=== PATIENT | female | born 1995 | race Two or more races ===

== ENCOUNTER → 2022-05-31 | Outpatient (REF) | payer SELFPAY ==
[2022-05-31 19:05] LABS: GC DNA AMPLIFICATION NEGATIVE (NEGATIVE)
== END ==
LOC: M LAB REF 15:58
PROVIDERS: ATTEND Physician Assistant
DX: R35.0 Frequency of micturition (principal)

== ENCOUNTER → 2022-08-14 | Outpatient (CLI) | payer MEDICAID ==
[2022-08-14 15:34] LABS: HEMATOCRIT 37.7 % (36.0-47.0); HEMOGLOBIN 12.8 g/dl (12.0-15.5); MEAN CORPUSCULAR HEMOGLOBIN 30.3 pg (27.0-33.0); MEAN CORPUSCULAR VOLUME 89.3 fl (80.0-96.0); PLATELET COUNT, AUTOMATED 371 10^3/uL (150-450); RED BLOOD COUNT 4.22 10^6/uL (4.00-5.40); WHITE BLOOD COUNT 9.7 10^3/uL (4.0-10.0)
[2022-08-14 16:32] LABS: HEPATITIS C VIRUS ABY INDEX < 0.0 INDEX (<0.8); HIV 1&2 SCREEN CENTAUR NEGATIVE (NEGATIVE)
== END ==
LOC: M PLALAB 12:27
PROVIDERS: ATTEND Obstetrics & Gynecology
DX: Z34.91 Encounter for supervision of normal pregnancy, unspecified, first trimester (principal)

== ENCOUNTER → 2022-09-13 | Outpatient (REF) | payer OTHER, MEDICARE, MEDICAID ==
[2022-09-13 16:18] LABS: GC DNA AMPLIFICATION NEGATIVE (NEGATIVE)
== END ==
LOC: M SFHCWAGY 13:08
PROVIDERS: ATTEND Obstetrics & Gynecology
DX: Z34.91 Encounter for supervision of normal pregnancy, unspecified, first trimester (principal)

== ENCOUNTER → 2022-10-20 | Outpatient (CLI) | payer OTHER | LOC: M WHC 14:29 | PROVIDERS: ATTEND Advanced Practice Midwife | DX: O32.1XX0 Maternal care for breech presentation, not applicable or unspecified (principal); Z36.89 Encounter for other specified antenatal screening; Z3A.21 21 weeks gestation of pregnancy ==

== ENCOUNTER → 2022-11-10 | Outpatient (CLI) | payer OTHER ==
[2022-11-10 13:44] LABS: HEMATOCRIT 35.7 % (36.0-47.0); HEMOGLOBIN 12.1 g/dl (12.0-15.5); MEAN CORPUSCULAR HEMOGLOBIN 30.9 pg (27.0-33.0); MEAN CORPUSCULAR HGB CONC 33.9 g/dl (32.0-36.5); MEAN CORPUSCULAR VOLUME 91.1 fl (80.0-96.0); PLATELET COUNT, AUTOMATED 314 10^3/uL (150-450); RED BLOOD COUNT 3.92 10^6/uL (4.00-5.40); WHITE BLOOD COUNT 8.4 10^3/uL (4.0-10.0)
[2022-11-10 15:28] LABS: GC DNA AMPLIFICATION NEGATIVE (NEGATIVE)
== END ==
LOC: M PLALAB 08:40
PROVIDERS: ATTEND Advanced Practice Midwife
DX: Z34.82 Encounter for supervision of other normal pregnancy, second trimester (principal)

== ENCOUNTER 2022-12-02 12:47 | Outpatient (CLI) | payer OTHER, MEDICARE, MEDICAID ==
[~2022-12-02] VITALS: Ht 162.6 cm; Wt 78.7 kg
[2022-12-02 13:00] VITALS: BP 129/69
[2022-12-02] MEDS ORDERED: HOME MED LIST COMPLETE! XX SCH (13:05)
[2022-12-02] MEDS ORDERED: PRENTAB9 PO (13:05)
== END 2022-12-02 13:29 | disposition home or self-care (01) ==
LOC: M LDO 12:47
PROVIDERS: ATTEND Specialist
DX: O26.892 Other specified pregnancy related conditions, second trimester (principal); O26.852 Spotting complicating pregnancy, second trimester; Z3A.27 27 weeks gestation of pregnancy

== ENCOUNTER → 2023-02-08 | Outpatient (REF) | payer MEDICARE, MEDICAID ==
[~2023-02-08] MED LIST: PRENTAB9 PO
== END ==
LOC: M PLALAB 09:03
PROVIDERS: ATTEND Advanced Practice Midwife
DX: Z34.83 Encounter for supervision of other normal pregnancy, third trimester (principal)

== ENCOUNTER 2023-02-26 20:28 | Inpatient (IN) | payer MEDICARE, MEDICAID ==
[~2023-02-26] VITALS: Ht 162.6 cm; Wt 89.1 kg
[2023-02-26] VITALS (7 sets, daily range): BP systolic 117–143; BP diastolic 59–72
[2023-02-26] MEDS ORDERED: LACTATED RINGER'S 1000 ML IV STA (21:01)
[2023-02-26] MEDS ORDERED: PENICILLIN G POTASSIUM 5 MU IV 5 MU in D5W MINI-BAG PLUS 100 ML IV STA (21:01)
[2023-02-26] MEDS ORDERED: OXYTOCIN INJ 10UNITS/ML 1ML VIAL IM PRN (21:05)
[2023-02-26] MEDS ORDERED: CARBOPROST TROMETHAMINE 250 MCG/ML AMP IM PRN (21:05)
[2023-02-26] MEDS ORDERED: LIDOCAINE 1% MDV 20ML VIAL INFIL PRN (21:05)
[2023-02-26] MEDS ORDERED: LR 1,000 ML IV SCH (21:05)
[2023-02-26] MEDS ORDERED: TRANEXAMIC ACID INJection 1,000 MG in NS 100 ML IV PRN (21:05)
[2023-02-26] MEDS ORDERED: METHYLERGONOVINE MALEATE 0.2MG/ML 1ML VIAL IM PRN (21:05)
[2023-02-26] MEDS ORDERED: OXYTOCIN DRIP 30 UNITS in IV 1 EA IV PRN (21:05)
[2023-02-26 21:52] LABS: HEMATOCRIT 37.3 % (36.0-47.0); HEMOGLOBIN 12.6 g/dl (12.0-15.5); MEAN CORPUSCULAR HEMOGLOBIN 30.2 pg (27.0-33.0); MEAN CORPUSCULAR HGB CONC 33.8 g/dl (32.0-36.5); MEAN CORPUSCULAR VOLUME 89.4 fl (80.0-96.0); PLATELET COUNT, AUTOMATED 286 10^3/uL (150-450); RED BLOOD COUNT 4.17 10^6/uL (4.00-5.40); WHITE BLOOD COUNT 15.2 10^3/uL (4.0-10.0)
[2023-02-26] MEDS ORDERED: MOM 30ML SUSPENSION UDC PO PRN (23:00)
[2023-02-26] MEDS ORDERED: ACETAMINOPHEN 500 MG TAB PO PRN (23:00)
[2023-02-26] MEDS ORDERED: DIBUCAINE 1% OINTMENT 30GM TOP PRN (23:00)
[2023-02-26] MEDS ORDERED: RHOGAM 300MCG (1500IU) INJ IM SCH (23:00)
[2023-02-26] MEDS ORDERED: DOCUSATE SODIUM 100MG CAPSULE PO PRN (23:00)
[2023-02-26] MEDS ORDERED: IBUPROFEN 800 MG TAB PO PRN (23:00)
[2023-02-26] MEDS ORDERED: ACETAMINOPHEN TAB 650MG DOSE (2X325MG) PO PRN (23:00)
[2023-02-26] MEDS ORDERED: ANUSOL HC CREAM 30GM TOP PRN (23:00)
[2023-02-27] MEDS ORDERED: PEN G POT 3,000,000 UNIT/50 ML 3,000,000 UNIT in IV 1 EA IV SCH (01:16)
[2023-02-27 01:29] VITALS: BP 111/57
[2023-02-27 05:49] VITALS: BP 118/55
[2023-02-27] MEDS: PRENATAL VITAMINS CHEWABLE TABLET PO SCH (09:39)
[2023-02-27] MEDS: IBUPROFEN 600MG TAB PO PRN (09:40)
[2023-02-27 17:43] VITALS: BP 116/85
[2023-02-28 06:00] VITALS: BP 118/62
[2023-02-28] MEDS: IBUPROFEN 600MG TAB PO PRN (07:54)
[2023-02-28] MEDS: PRENATAL VITAMINS CHEWABLE TABLET PO SCH (07:54)
[2023-02-28] MEDS ORDERED: MEASLES,MUMPS,RUBELLA VACCINE INJ (MMR-II) SC.IMMUN ONE (09:00)
== END 2023-02-28 14:20 | disposition home or self-care (01) | DRG 807 ==
LOC: M LDO 20:28 → M LDI 20:49 → M OBS 23:46
PROVIDERS: ADMIT Advanced Practice Midwife; ATTEND Advanced Practice Midwife
PROC: 10E0XZZ Delivery of Products of Conception, External Approach (ICD-10-PCS; principal; 2023-02-26)
PROC: 0HQ9XZZ Repair Perineum Skin, External Approach (ICD-10-PCS; 2023-02-26)
DX: O62.3 Precipitate labor (principal); Z37.0 Single live birth; Z3A.39 39 weeks gestation of pregnancy; O99.824 Streptococcus B carrier state complicating childbirth; O70.0 First degree perineal laceration during delivery

== ENCOUNTER → 2023-09-14 | Outpatient (REF) | payer MEDICARE, MEDICAID | LOC: M PLALAB 08:40 | PROVIDERS: ATTEND Advanced Practice Midwife | DX: Z01.419 Encounter for gynecological examination (general) (routine) without abnormal findings (principal) ==

== ENCOUNTER → 2023-09-14 | Outpatient (CLI) | payer MEDICAID, MEDICARE, OTHER | LOC: M PLALAB 09:56 | PROVIDERS: ATTEND Advanced Practice Midwife | DX: Z33.2 Encounter for elective termination of pregnancy (principal) ==

== ENCOUNTER → 2023-09-21 | Outpatient (CLI) | payer OTHER | LOC: M PLALAB 10:42 | PROVIDERS: ATTEND Advanced Practice Midwife | DX: Z33.2 Encounter for elective termination of pregnancy (principal) ==

== ENCOUNTER → 2024-02-05 | Outpatient (CLI) | payer OTHER | LOC: M PLAIMG 10:30 | PROVIDERS: ATTEND Physician Assistant Surgical | DX: M54.6 Pain in thoracic spine (principal); M41.9 Scoliosis, unspecified ==

== ENCOUNTER → 2024-03-20 | Outpatient (CLI) | payer OTHER | LOC: M RAD 12:24 | PROVIDERS: ATTEND Physician Assistant Surgical | DX: S39.012D Strain of muscle, fascia and tendon of lower back, subsequent encounter (principal); S16.1XXD Strain of muscle, fascia and tendon at neck level, subsequent encounter ==

== ENCOUNTER → 2025-08-12 | Outpatient (CLI) | payer OTHER ==
[2025-08-12 14:24] LABS: PLATELET COUNT, AUTOMATED 352 10^3/uL (150-450)
[2025-08-12 15:14] LABS: HIV 1&2 SCREEN NEGATIVE (NEGATIVE)
[2025-08-12 15:16] LABS: Trichomonas vaginalis (AMP) NOT DETECTED (NEGATIVE)
[2025-08-12 15:23] LABS: HEPATITIS C VIRUS ABY INDEX 0.02 INDEX (<0.8)
[2025-08-12 15:40] LABS: GC DNA AMPLIFICATION NEGATIVE (NEGATIVE)
== END ==
LOC: M PLALAB 11:01
PROVIDERS: ATTEND Advanced Practice Midwife
DX: O99.212 Obesity complicating pregnancy, second trimester (principal); Z3A.13 13 weeks gestation of pregnancy; E66.9 Obesity, unspecified

== ENCOUNTER → 2025-09-21 | Outpatient (CLI) | payer OTHER | LOC: M WHC 10:13 | PROVIDERS: ATTEND Advanced Practice Midwife | DX: O99.212 Obesity complicating pregnancy, second trimester (principal); Z3A.19 19 weeks gestation of pregnancy ==

== ENCOUNTER 2025-10-12 16:16 | Emergency (ER) | payer OTHER ==
[~2025-10-12] VITALS: Ht 162.6 cm; Wt 93.3 kg
[2025-10-12] MEDS: ACETAMINOPHEN 325 MG TAB PO ONE (17:08)
[2025-10-12] MEDS ORDERED: OSEL75CA PO (18:14)
[2025-10-12 18:23] VITALS: BP 101/53; TEMP 99.8; O2SAT 96
== END 2025-10-12 18:25 | disposition home or self-care (01) ==
LOC: M ED 16:16
DX: O98.512 Other viral diseases complicating pregnancy, second trimester (principal); Z3A.22 22 weeks gestation of pregnancy

== ENCOUNTER → 2025-10-15 | Outpatient (CLI) | payer OTHER ==
[~2025-10-15] MED LIST changes: +OSEL75CA PO
== END ==
LOC: M WHC 13:23
PROVIDERS: ATTEND Advanced Practice Midwife
DX: Z34.82 Encounter for supervision of other normal pregnancy, second trimester (principal); Z3A.22 22 weeks gestation of pregnancy

== ENCOUNTER 2025-11-09 11:10 | Emergency (ER) | payer OTHER ==
[2025-11-09] MEDS ORDERED: ACET-907 PO (11:31)
[2025-11-09] MEDS ORDERED: CYCL-707 PO (12:12)
== END 2025-11-09 11:25 | disposition admitted as inpatient to this hospital (09) ==
LOC: M ED 11:10
DX: Z53.21 Procedure and treatment not carried out due to patient leaving prior to being seen by health care provider (principal)

== ENCOUNTER 2025-11-09 11:20 | Outpatient (CLI) | payer OTHER ==
[~2025-11-09] VITALS: Ht 162.6 cm; Wt 95.2 kg
[2025-11-09] MEDS ORDERED: ACET-907 PO (11:31)
[2025-11-09] MEDS ORDERED: HOME MED LIST COMPLETE! XX SCH (11:35)
[2025-11-09 11:39] VITALS: BP 126/60; O2SAT 97
[2025-11-09] MEDS: ACETAMINOPHEN 500 MG TAB PO ONE (11:55)
[2025-11-09] MEDS ORDERED: CYCL-707 PO (12:12)
== END 2025-11-09 12:30 | disposition home or self-care (01) ==
LOC: M LDO 11:20
PROVIDERS: ATTEND Advanced Practice Midwife
DX: O26.892 Other specified pregnancy related conditions, second trimester (principal); O9A.212 Injury, poisoning and certain other consequences of external causes complicating pregnancy, second trimester; M54.50 Low back pain, unspecified; S09.8XXA Other specified injuries of head, initial encounter; W00.0XXA Fall on same level due to ice and snow, initial encounter; Z3A.26 26 weeks gestation of pregnancy; Y92.9 Unspecified place or not applicable; Y93.9 Activity, unspecified; Y99.9 Unspecified external cause status
CPT/HCPCS: 59025; 99283; G0463

== ENCOUNTER 2025-11-09 12:45 | Emergency (ER) | payer OTHER ==
[~2025-11-09] VITALS: Ht 162.6 cm; Wt 94.8 kg
[~2025-11-09 12:45] MED LIST changes: +ACET-907 PO; +CYCL-707 PO
[2025-11-09 12:54] VITALS: BP 131/60; TEMP 98; O2SAT 97
== END 2025-11-09 15:03 | disposition home or self-care (01) ==
LOC: M ED 12:45
DX: O9A.212 Injury, poisoning and certain other consequences of external causes complicating pregnancy, second trimester (principal); S09.90XA Unspecified injury of head, initial encounter; W19.XXXA Unspecified fall, initial encounter; Y92.009 Unspecified place in unspecified non-institutional (private) residence as the place of occurrence of the external cause; Y93.9 Activity, unspecified; Y99.9 Unspecified external cause status; Z3A.26 26 weeks gestation of pregnancy